=== PATIENT | female | born 1965 | race African-American/Black ===

== ENCOUNTER 2017-05-14 09:53 | Emergency (ER) | payer OTHER ==
[~2017-05-14] VITALS: Ht 162.6 cm; Wt 65.0 kg
[2017-05-14] MEDS ORDERED: ACETAMINOPHEN 325MG TABLET PO ONE (15:00)
[2017-05-14 15:08] VITALS: BP 137/79
== END 2017-05-14 17:06 | disposition home or self-care (01) ==
LOC: ER 10:12
DX: S09.8XXA Other specified injuries of head, initial encounter (principal); R07.89 Other chest pain; M54.2 Cervicalgia; W01.198A Fall on same level from slipping, tripping and stumbling with subsequent striking against other object, initial encounter; Y93.89 Activity, other specified; Y92.89 Other specified places as the place of occurrence of the external cause; M50.223 Other cervical disc displacement at C6-C7 level; Z88.0 Allergy status to penicillin; F12.90 Cannabis use, unspecified, uncomplicated; R03.0 Elevated blood-pressure reading, without diagnosis of hypertension
CPT/HCPCS: 70450; 72125; 99284; Z7610